=== PATIENT | female | born 1935 | race Caucasian/White ===

== ENCOUNTER 2016-08-15 22:46 | Emergency (ER) | payer MEDICAID ==
--- NOTE | 2016-08-15 22:56 | ED Physician Documentation ---
PD HPI DYSPNEA - Stated complaint Stated Complaint: SOA/COUGH - History obtained from History obtained from: Patient, Family - History of Present Illness Timing - onset: How many weeks ago (2) Timing - details: Gradual onset, Waxing and waning Pain level now: 0 Improved by: Rest Worsened by: Exertion Associated symptoms: Cough, Wheezing. No: Fever, Bilateral edema, Unilateral edema Similar symptoms before: Diagnosis (asthma, pneumonia) Recently seen: Not recently seen - Additional information Additional information: c/o 2 weeks of dyspnea on exertion, cough; symptoms worsening over past 3 days. 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: Tubal ligation - Present Medications Home Medications: Ambulatory Orders Medication Instructions Recorded Confirmed Multivitamin [Multi-Vitamin Daily] 1 each PO DAILY 09/24/12 11/01/15 Albuterol Sulfate [Ventolin Hfa] 2 puffs IH Q4HR PRN #1 hfa.aer.ad 11/01/15 Azithromycin [Zithromax] 250 mg PO DAILY #6 tablet 11/01/15 Formoterol Fumarate [Foradil] 0 mg INH .FREQ 11/01/15 11/01/15 Loratadine 0 tab PO .FREQ 11/01/15 11/01/15 predniSONE [Deltasone] 10 mg PO DAILY #26 tablet 11/01/15 Azithromycin [Zithromax] 250 mg PO DAILY 4 Days 08/16/16 Prednisone 40 mg PO DAILY 3 Days 08/16/16 - Allergies Allergies/Adverse Reactions: Allergies Allergy/AdvReac Type Severity Reaction Status Date / Time No Known Drug Allergies Allergy Verified 11/01/15 10:07 - Social History Does the pt smoke?: No Smoking Status: Never smoker PD ED PE NORMAL - Vitals Vital signs reviewed: Yes - General General: Alert and oriented X 3, No acute distress, Well developed/nourished - Neck Neck: Supple, no meningeal sign - Cardiac Cardiac: RRR, No murmur - Respiratory Respiratory: No respiratory distress - Abdomen Abdomen: Soft, Non tender - Extremities Extremities: No edema PD ED PE EXPANDED - Respiratory Respiratory: Wheezing (bilateral expiratory wheezing and decreased breath sounds ) Results - Vitals Vitals: Vital Signs - 24 hr 08/15/16 08/15/16 08/15/16 22:55 23:01 23:25 Temperature 36.5 C Heart Rate 84 78 73 Respiratory 20 22 20 Rate Blood Pressure 143/80 H 141/68 H O2 Saturation 93 98 08/15/16 08/16/16 08/16/16 23:32 00:04 00:38 Temperature Heart Rate 73 74 71 Respiratory 19 17 16 Rate Blood Pressure 140/63 H 130/61 117/61 O2 Saturation 97 97 96 08/16/16 08/16/16 08/16/16 01:03 01:50 01:56 Temperature 36.4 C L Heart Rate 67 70 71 Respiratory 18 18 19 Rate Blood Pressure 93/62 132/62 H O2 Saturation 96 96 Oxygen O2 Source Nasal cannula Oxygen Flow Rate 2 - EKG (time done) No standard instances Rate: Rate (enter#) (73) Rhythm: NSR [place]: Normal Intervals: Normal [place] QRS: Normal Ischemia: Non specific changes (V3-V6) - Labs Labs: Laboratory Tests 08/15/16 08/15/16 08/15/16 00:05 00:05 00:05 WBC 15.7 H RBC 4.67 Hgb 13.5 Hct 39.5 MCV 84.6 MCH 28.8 MCHC 34.1 RDW 12.4 Plt Count 240 MPV 8.6 Neut # 8.7 H Lymph # 4.7 H [place] # 1.3 H Eos # 0.9 H Baso # 0.1 Absolute Nucleated RBC 0.00 Nucleated RBCs 0.0 Sodium 133 L Potassium 4.8 Chloride 96 L Carbon Dioxide 28 Anion Gap 9.0 BUN 22 H Creatinine 1.0 Estimated GFR (MDRD) 53 L Glucose 112 H Calcium 9.4 Troponin I < 0.04 B-Natriuretic Peptide 08/15/16 00:05 WBC RBC Hgb Hct MCV MCH MCHC RDW Plt Count MPV Neut # Lymph # [place] # Eos # Baso # Absolute Nucleated RBC Nucleated RBCs Sodium Potassium Chloride Carbon Dioxide Anion Gap BUN Creatinine Estimated GFR (MDRD) Glucose Calcium Troponin I B-Natriuretic Peptide 39 - Rads (name of study) chest xray Radiology: Prelim report reviewed, See rad report PD MEDICAL DECISION MAKING - ED course Complexity details: reviewed old records, reviewed results, re-evaluated patient , considered differential, d/w patient, d/w family Departure - Departure Disposition: Home, Self Care Clinical Impression: Pneumonia, Asthma Condition: Good Instructions: ED Reactive Airway Disease, ED Pneumonia Adult Follow-Up: Saúl Post MD [Primary Care Provider] - (Thursday as scheduled) Prescriptions: Prednisone 40 mg PO DAILY 3 Days Azithromycin [Zithromax] 250 mg PO DAILY 4 Days Discharge Date/Time: 08/16/16 02:10
[2016-08-15] MEDS ORDERED: predniSONE 20 MG TABLET PO STA (23:17)
[2016-08-15] MEDS ORDERED: IPRATROPIUM/ALBUTEROL 3 ML NEB INH STA (23:18)
[2016-08-15] MEDS ORDERED: predniSONE 20 MG TABLET ONE (23:20)
[2016-08-15] MEDS ORDERED: IPRATROPIUM/ALBUTEROL 3 ML NEB INH ONE (23:23)
[2016-08-16 00:10] LABS: BASOPHILS # (AUTO) 0.1 10^3/uL (0.0-0.1); BASOPHILS % (AUTO) 0.7 %; EOSINOPHILS # (AUTO) 0.9 10^3/uL (0.0-0.7); EOSINOPHILS % (AUTO) 5.7 %; HCT - HEMATOCRIT 39.5 % (37.0-47.0); HGB - HEMOGLOBIN 13.5 g/dL (12.0-16.0); LYMPHOCYTES # (AUTO) 4.7 10^3/uL (1.5-3.5); LYMPHOCYTES % (AUTO) 29.9 %; MEAN CORPUSCULAR HEMOGLOBIN 28.8 pg (27.0-31.0); MEAN CORPUSCULAR HGB CONC 34.1 g/dL (32.0-36.0); MEAN CORPUSCULAR VOLUME 84.6 fL (81.0-99.0); MEAN PLATELET VOLUME 8.6 fL (7.9-10.8); MONOCYTES # (AUTO) 1.3 10^3/uL (0.0-1.0); MONOCYTES % (AUTO) 8.4 %; NEUTROPHILS # (AUTO) 8.7 10^3/uL (1.5-6.6); NEUTROPHILS % (AUTO) 55.3 %; RED BLOOD COUNT 4.67 10^6/uL (4.20-5.40); RED CELL DISTRIBUTION WIDTH 12.4 % (12.0-15.0); UNCORRECTED WHITE BLOOD COUNT 15.7 x10^3/uL; WHITE BLOOD COUNT 15.7 x10^3/uL (4.8-10.8)
[2016-08-16 00:21] LABS: CALCIUM 9.4 mg/dL (8.5-10.3); POTASSIUM 4.8 mmol/L (3.5-5.0)
--- NOTE | 2016-08-16 00:29 | XRAY Preliminary Report ---
Exam: XR Chest 2 View PA/LAT IMPRESSION: 1. Patchy right lung base as well as left upper lobe airspace disease demonstrates mild progression s trae the prior exam. This may represent infection. 2. Background of coarse multifocal interstitial abnormality as well as patchy right upper lobe nodula rity appears stable. These may be due to prior tuberculosis. [facility] SITE ID: [id number]
--- NOTE | 2016-08-16 00:32 | XRAY Report ---
EXAM: CHEST RADIOGRAPHY EXAM DATE: 08/16/2016 12:06 AM. CLINICAL HISTORY: Dyspnea, cough. COMPARISON: 11/09/2015. TECHNIQUE: 2 views. FINDINGS: Lungs/Pleura: Multiple coarse interstitial abnormalities within the lungs are relatively stable from the prior exam. Patchy nodular right upper lobe and right lower lobe airspace disease as well as mini mal nodular left upper lobe airspace disease. Slight progression within the left upper lobe and right lung base region. Mediastinum: Heart and mediastinal contours are unremarkable. Other: Right upper quadrant clips indicate prior cholecystectomy. IMPRESSION: 1. Patchy right lung base as well as left upper lobe airspace disease demonstrates mild progression s trae the prior exam. This may represent infection. 2. Background of coarse multifocal interstitial abnormality as well as patchy right upper lobe nodula rity appears stable. These may be due to prior tuberculosis. [facility] Referring Provider Line: [phone] SITE ID: [id number]
[2016-08-16] MEDS ORDERED: ALBUTEROL NEB 2.5 MG/3 ML INH ONE (01:46)
[2016-08-16] MEDS ORDERED: AZITHROMYCIN 250 MG TABLET PO STA (01:52)
[2016-08-16] MEDS ORDERED: ALBUTEROL NEB 2.5 MG/3 ML INH STA (01:52)
[2016-08-16] MEDS ORDERED: AZITHROMYCIN 250 MG TABLET PO ONE (01:54)
[2016-08-16 01:56] VITALS: BP 132/62
== END 2016-08-16 02:10 | disposition home or self-care (01) ==
LOC: ED 22:46
DX: J18.9 Pneumonia, unspecified organism (principal); J45.909 Unspecified asthma, uncomplicated
CPT/HCPCS: 36415; 71020; 80048; 83880; 84484; 85025; 93005; 94640; 99284; A9270; J7512; J7613; J7620

== ENCOUNTER 2017-04-02 20:31 | Outpatient (CLI) | payer MEDICAID | END 2017-04-02 20:32 | disposition critical access hospital (66) | LOC: EMS 20:31 | PROVIDERS: ATTEND Surgery | DX: R06.00 Dyspnea, unspecified (principal); R05 Cough; R50.9 Fever, unspecified | CPT/HCPCS: A0425; A0429 ==

== ENCOUNTER 2017-04-02 20:55 | Emergency (ER) | payer MEDICAID ==
[2017-04-02] MEDS ORDERED: SODIUM CHLORIDE 0.9% 1,000 ML IV ONE (21:01)
[2017-04-02] MEDS ORDERED: IPRATROPIUM/ALBUTEROL 3 ML NEB INH STA (21:01)
[2017-04-02 21:22] LABS: BASOPHILS % (AUTO) 0.2 %; EOSINOPHILS % (AUTO) 0.1 %; HGB - HEMOGLOBIN 11.3 g/dL (12.0-16.0); LYMPHOCYTES % (AUTO) 16.8 %; MEAN CORPUSCULAR HEMOGLOBIN 27.2 pg (27.0-31.0); MEAN CORPUSCULAR HGB CONC 32.6 g/dL (32.0-36.0); MEAN CORPUSCULAR VOLUME 83.5 fL (81.0-99.0); MONOCYTES % (AUTO) 7.2 %; NEUTROPHILS % (AUTO) 75.7 %; PLT - PLATELET COUNT 227 10^3/uL (130-450); RED BLOOD COUNT 4.15 10^6/uL (4.20-5.40); RED CELL DISTRIBUTION WIDTH 13.9 % (12.0-15.0); WHITE BLOOD COUNT 23.3 x10^3/uL (4.8-10.8)
--- NOTE | 2017-04-02 21:22 | ED Physician Documentation ---
History of Present Illness - Stated complaint Stated Complaint: FEVER/COUGH - Chief complaint Chief Complaint: Resp - History obtained from History obtained from: Patient, Family, EMS - History of Present Illness Timing: How many days ago (2) - Additonal information Additional information: Patient is a 81 year old female with a history of asthma who is presenting to the emergency department for cough and generalized weakness over the last few days. ems states that the family took the blood pressure at home and patient was hypotensive. With ems patient has been normotensive. family reports tactile fevers at home. Patient is non yoruba speaking but is here with her granddaughter. Review of Systems Constitutional: reports: Fever. denies: Myalgias Eyes: denies: Decreased vision Ears: denies: Ear pain, Drainage/discharge Nose: reports: Congestion Throat: denies: Sore throat Cardiac: denies: Chest pain / pressure, Palpitations Respiratory: reports: Dyspnea, Cough, Wheezing GI: denies: Abdominal Swelling, Nausea, Vomiting : denies: Dysuria, Frequency, Hematuria Skin: denies: Rash, Lesions Musculoskeletal: denies: Neck pain, Back pain, Extremity swelling Neurologic: reports: Generalized weakness. 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 /TWISTING OPERATOR: Tubal ligation - Present Medications Home Medications: Ambulatory Orders Medication Instructions Recorded Confirmed Multivitamin [Multi-Vitamin Daily] 1 each PO DAILY 09/24/12 11/01/15 Albuterol Sulfate [Ventolin Hfa] 2 puffs IH Q4HR PRN #1 hfa.aer.ad 11/01/15 Azithromycin [Zithromax] 250 mg PO DAILY #6 tablet 11/01/15 Formoterol Fumarate [Foradil] 0 mg INH .FREQ 11/01/15 11/01/15 Loratadine 0 tab PO .FREQ 11/01/15 11/01/15 predniSONE [Deltasone] 10 mg PO DAILY #26 tablet 11/01/15 Azithromycin [Zithromax] 250 mg PO DAILY 4 Days tablet 08/16/16 predniSONE [Prednisone] 40 mg PO DAILY 3 Days tablet 08/16/16 Amox/Clav 875/125 [Augmentin] 2 each PO Q12H #28 tablet 04/02/17 Azithromycin 250 mg PO DAILY #4 tablet 04/02/17 - Allergies Allergies/Adverse Reactions: Allergies Allergy/AdvReac Type Severity Reaction Status Date / Time No Known Drug Allergies Allergy Verified 04/02/17 21:00 - Social History Does the pt smoke?: No Smoking Status: Never smoker Does the pt drink ETOH?: No Does the pt have substance abuse?: No - Immunizations Immunizations are current?: No Immunizations: TDAP >10years/unknown - POLST Patient has POLST: No PD ED PE NORMAL - Vitals Vital signs reviewed: Yes - General General: Alert and oriented X 3 - HEENT HEENT: Atraumatic, PERRL - Neck Neck: Supple, no meningeal sign, No JVD - Cardiac Cardiac: RRR, No murmur - Abdomen Abdomen: Soft, Non tender, Non distended - Derm Derm: Normal color, Warm and dry, No rash - Extremities Extremities: No edema, No calf tenderness / cord - Neuro Neuro: Alert and oriented X 3, No motor deficit Eye Opening: Spontaneous Motor: Obeys Commands Verbal: Oriented GCS Score: 15 PD ED PE EXPANDED - HEENT HEENT: Dry mucous membranes - Respiratory Respiratory: Wheezing, Rhonchi, Right upper lobe, Right middle lobe, Right lower lobe, Left upper lobe, Left lower lobe Results - Vitals Vitals: Vital Signs - 24 hr 04/02/17 04/02/17 04/02/17 20:56 21:03 21:15 Temperature 36.3 C L 36.6 C Heart Rate 94 85 Respiratory 18 20 Rate Blood Pressure 117/69 O2 Saturation 93 04/02/17 04/02/17 21:35 22:36 Temperature 36.7 C Heart Rate 86 82 Respiratory 20 18 Rate Blood Pressure 113/63 123/72 O2 Saturation 97 97 Oxygen O2 Source Room air - EKG (time done) 2102 Rate: Rate (enter#) (87) Rhythm: NSR [place]: Normal Intervals: Normal [place] QRS: Normal Ischemia: Normal ST segments Compare to prior EKG: Old EKG unavailable - Labs Labs: Laboratory Tests 04/02/17 04/02/17 04/02/17 21:10 21:10 21:10 WBC 23.3 H RBC 4.15 L Hgb 11.3 L Hct 34.7 L MCV 83.5 MCH 27.2 MCHC 32.6 RDW 13.9 Plt Count 227 MPV 9.0 Neut # Not Reportable Lymph # Not Reportable [place] # Not Reportable Eos # Not Reportable Baso # Not Reportable Absolute Nucleated RBC Not Reportable Total Counted 100 Band Neuts % (Manual) 3 Abnorm Lymph % (Manual) 0 Nucleated RBC % Not Reportable Neutrophils # (Manual) 19.1 H Lymphocytes # (Manual) 4.0 H Monocytes # (Manual) 0.2 Eosinophils # (Manual) 0.0 Basophils # (Manual) 0.0 Differential Comment MANUAL DIFFERENTIAL Manual Slide Review Indicated WBC Morphology TOXIC GRANULATION Platelet Estimate NORMAL (130-450,000) Platelet Morphology NORMAL APPEARANCE RBC Morph Micro Appear NORMAL APPEARANCE Sodium 131 L Potassium 4.3 Chloride 97 L Carbon Dioxide 22 Anion Gap 12.0 BUN 30 H Creatinine 1.5 H Estimated GFR (MDRD) 33 L Glucose 178 H Calcium 8.7 Total Bilirubin 0.7 AST 19 ALT 15 Alkaline Phosphatase 66 Troponin I 0.04 B-Natriuretic Peptide Total Protein 7.3 Albumin 3.2 Globulin 4.1 Albumin/Globulin Ratio 0.8 L Lipase < 10 L Influenza A (Rapid) Influenza B (Rapid) Influenza Types A,B Ag 04/02/17 04/02/17 21:10 21:10 WBC RBC Hgb Hct MCV MCH MCHC RDW Plt Count MPV Neut # Lymph # [place] # Eos # Baso # Absolute Nucleated RBC Total Counted Band Neuts % (Manual) Abnorm Lymph % (Manual) Nucleated RBC % Neutrophils # (Manual) Lymphocytes # (Manual) Monocytes # (Manual) Eosinophils # (Manual) Basophils # (Manual) Differential Comment Manual Slide Review WBC Morphology Platelet Estimate Platelet Morphology RBC Morph Micro Appear Sodium Potassium Chloride Carbon Dioxide Anion Gap BUN Creatinine Estimated GFR (MDRD) Glucose Calcium Total Bilirubin AST ALT Alkaline Phosphatase Troponin I B-Natriuretic Peptide 71 Total Protein Albumin Globulin Albumin/Globulin Ratio Lipase Influenza A (Rapid) Negative Influenza B (Rapid) Negative Influenza Types A,B Ag - - Rads (name of study) chest x-ray Radiology: Final report received, See rad report (acute pnuemonia and chronic lung findings ) PD MEDICAL DECISION MAKING - ED course Complexity details: reviewed old records, reviewed results, re-evaluated patient , considered differential, d/w patient, d/w family ED course: Patient was seen and examined at bedside. ekg was performed which showed nsr. IV access was gained and labs were drawn. patient was treated with a fluid bolus. Chest x-ray was performed and did show acute on chronic lung pathology. Patient was started on rocephin and azithromycin. Patient had an elevated CURB65/psi score but family did not want to stay. Patient was awake and alert. patient's vital signs were within normal limits. The risks of leaving were explained to the family and they understood. Patient signed out ama but precriptions were written. Departure - Departure Disposition: Against Medical Advice Clinical Impression: Pneumonia Condition: Stable Instructions: ED Pneumonia Adult Follow-Up: primary,care provider [Other] - Within 3 Days Prescriptions: Amox/Clav 875/125 [Augmentin] 2 each PO Q12H #28 tablet Azithromycin 250 mg PO DAILY #4 tablet Comments: The patient's symptoms are being caused by pneumonia. She was started on antibiotics tonight and will need to be on one of the antibiotics for the next 4 days and the other antibiotic you will be on for 10 days. the patient is at a relatively high risk of getting worse, so if she doesn't improve you will have to come back to the emergency department. You should take the antibiotic with yogurt or probiotics to help reduce the gi side effects.
[2017-04-02 21:24] LABS: ABNORMAL LYMPHS % (MANUAL) 0 %
[2017-04-02 21:39] LABS: BAND NEUTROPHILS % (MANUAL) 3 %; LYMPHOCYTES % (MANUAL) 17 %; MONOCYTES # (MANUAL) 0.2 10^3/uL (0.0-1.0); NEUTROPHILS # (MANUAL) 19.1 10^3/uL (1.5-6.6); NEUTROPHILS % (MANUAL) 79 %; PLATELET ESTIMATE, MANUAL NORMAL (130-450,000) (NORMAL); PLATELET MORPHOLOGY NORMAL APPEARANCE (NORMAL); RBC MORPHOLOGY (MULTIPLE) NORMAL APPEARANCE (NORMAL)
[2017-04-02 21:40] LABS: DIFFERENTIAL COMMENT MANUAL DIFFERENTIAL
--- NOTE | 2017-04-02 21:47 | XRAY Preliminary Report ---
Exam: XR CHEST 2 VIEW X-RAY IMPRESSION: 1. Progression of extensive right lung infiltrate, consistent with either acute on chronic lung disea se or progression of this patient's presumed chronic inflammatory/granulomatous process. 2. New small left lung base infiltrate. 3. Stable mediastinal adenopathy. 4. Increasing small right pleural effusion. [facility] SITE ID: [id number]
[2017-04-02 21:52] LABS: ALBUMIN 3.2 g/dL (3.2-5.5); ALBUMIN/GLOBULIN RATIO 0.8 (1.0-2.2); ALKALINE PHOSPHATASE 66 IU/L (42-121); ALT ALANINE AMINOTRANSFERASE 15 IU/L (10-60); AST ASPARTATE AMINOTRANSFERASE 19 IU/L (10-42); BILIRUBIN,TOTAL 0.7 mg/dL (0.2-1.0); BUN - BLOOD UREA NITROGEN 30 mg/dL (6-20); CALCIUM 8.7 mg/dL (8.5-10.3); CARBON DIOXIDE - CO2 22 mmol/L (21-32); CHLORIDE 97 mmol/L (101-111); CREATININE 1.5 mg/dL (0.4-1.0); GFR - MDRD 33 (>89); GLUCOSE 178 mg/dL (70-100); SODIUM 131 mmol/L (135-145); TOTAL PROTEIN 7.3 g/dL (6.7-8.2)
[2017-04-02 21:55] LABS: LIPASE < 10 U/L (22-51)
--- NOTE | 2017-04-02 22:00 | XRAY Report ---
EXAM: CHEST RADIOGRAPHY EXAM DATE: 04/02/2017 09:24 PM. CLINICAL HISTORY: Fever, cough. COMPARISON: 08/15/2016. 11/01/2015. TECHNIQUE: 2 views. FINDINGS: Lungs/Pleura: Overexpanded. Increasing reticulonodular and interstitial infiltrates throughout the ri ght lung, with baseline preponderance of nodular densities right upper lobe long-standing. New small interstitial infiltrate left base. Left lung otherwise clear. Increasing slight blunting right lateral and posterior costophrenic angles. No pneumothorax. Mediastinum: Heart is normal caliber. Stable widened left paratracheal stripe. No midline shift. Other: Scoliosis. IMPRESSION: 1. Progression of extensive right lung infiltrates, consistent with either acute on chronic lung dise ase or progression of this patient's presumed chronic inflammatory/granulomatous process. 2. New small left lung base infiltrate. 3. Stable mediastinal adenopathy. 4. Increasing small right pleural effusion. [facility] Referring Provider Line: [phone] SITE ID: [id number]
[2017-04-02] MEDS ORDERED: cefTRIAXone 1 GM in SODIUM CHLORIDE 0.9% MINIBAG 100 ML IV STA (22:04)
[2017-04-02] MEDS ORDERED: AZITHROMYCIN INJ 500 MG in SODIUM CHLORIDE 0.9% 250 ML IV STA (22:06)
[2017-04-02] MEDS ORDERED: AZITHROMYCIN 250 MG TABLET PO STA (22:34)
[2017-04-02 22:37] VITALS: BP 123/72
== END 2017-04-02 23:01 | disposition left against medical advice (07) ==
LOC: ED 20:55
DX: J18.9 Pneumonia, unspecified organism (principal); J44.0 Chronic obstructive pulmonary disease with (acute) lower respiratory infection
CPT/HCPCS: 36415; 71046; 80053; 83690; 83880; 84484; 85025; 87040; 87275; 87276; 93005; 94640; 96361; 96365; 99284; A9270; J7620

== ENCOUNTER 2018-12-24 18:18 | Emergency (ER) | payer MEDICAID ==
--- NOTE | 2018-12-24 19:13 | ED Physician Documentation ---
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 She has had 6 days of cough, nasal congestion, and some shortness of breath. She has a history of asthma and chronic lung disease for years of unclear etiology. She denies fever currently, but found that she had a subjective fever earlier in the week. She has been coughing white sputum. No leg swelling, no history of blood clots. No chest pain. 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: None : None HEENT: None Psych: Anxiety Musculoskeletal: None Derm: None - Past Surgical History Past Surgical History: Yes General: 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 /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: Tubal ligation - Present Medications Home Medications: Ambulatory Orders Medication Instructions Recorded Confirmed Multivitamin [Multi-Vitamin Daily] 1 each PO DAILY 09/24/12 11/01/15 Albuterol Sulfate [Ventolin Hfa] 2 puffs IH Q4HR PRN #1 hfa.aer.ad 11/01/15 Azithromycin [Zithromax] 250 mg PO DAILY #6 tablet 11/01/15 Formoterol Fumarate [Foradil] 0 mg INH .FREQ 11/01/15 11/01/15 Loratadine 0 tab PO .FREQ 11/01/15 11/01/15 predniSONE [Deltasone] 10 mg PO DAILY #26 tablet 11/01/15 Azithromycin [Zithromax] 250 mg PO DAILY 4 Days tablet 08/16/16 predniSONE [Prednisone] 40 mg PO DAILY 3 Days tablet 08/16/16 Amox/Clav 875/125 [Augmentin] 2 each PO Q12H #28 tablet 04/02/17 Azithromycin 250 mg PO DAILY #4 tablet 04/02/17 Azithromycin [Zithromax] 0 mg PO DAILY #6 tablet 12/24/18 predniSONE [Prednisone] 40 mg PO DAILY #10 tablet 12/24/18 - Allergies Allergies/Adverse Reactions: Allergies Allergy/AdvReac Type Severity Reaction Status Date / Time No Known Drug Allergies Allergy Verified 12/24/18 18:33 - Social History Does the pt smoke?: No Smoking Status: Never smoker Does the pt drink ETOH?: No Does the pt have substance abuse?: No - Immunizations Immunizations are current?: Yes - POLST Patient has POLST: No PD ED PE NORMAL - Vitals Vital signs reviewed: Yes - General General: Alert and oriented X 3, No acute distress - HEENT HEENT: Atraumatic, PERRL - Neck Neck: Supple, no meningeal sign - Cardiac Cardiac: RRR - Respiratory Respiratory: Other (Fine crackles, no wheeze) - Abdomen Abdomen: Soft, Non tender, Non distended - Derm Derm: Warm and dry - Extremities Extremities: No deformity, No edema - Neuro Neuro: Alert and oriented X 3 - Psych Psych: Normal mood, Normal affect Results - Vitals Vitals: Vital Signs - 24 hr 12/24/18 12/24/18 12/24/18 18:30 19:47 21:00 Temperature 36.9 C 36.5 C Heart Rate 85 71 77 Respiratory 21 21 24 Rate Blood Pressure 157/78 H 143/70 H 148/80 H O2 Saturation 92 96 96 12/24/18 12/24/18 21:05 22:06 Temperature Heart Rate 73 75 Respiratory 18 17 Rate Blood Pressure 144/55 H O2 Saturation 95 Oxygen O2 Source Room air - EKG (time done) 18:34 Other comments: Other comments (Rate 78, rhythm sinus, There are slightly peaked T waves in V2 through V4, unchanged in appearance to past EKG. There is no significant ST segment elevation or depression. No abnormal T wave inversions) - Labs Labs: Laboratory Tests 12/24/18 12/24/18 19:20 19:20 WBC 10.6 RBC 4.43 Hgb 12.8 Hct 39.2 MCV 88.5 MCH 28.9 MCHC 32.7 RDW 12.9 Plt Count 240 MPV 11.7 H Neut # (Auto) 4.1 Lymph # (Auto) 4.7 H [place] # (Auto) 1.2 H Eos # (Auto) 0.6 Baso # (Auto) 0.1 Absolute Nucleated RBC 0.00 Nucleated RBC % 0.0 Sodium 137 Potassium 4.7 Chloride 102 Carbon Dioxide 26 Anion Gap 9.0 BUN 29 H Creatinine 1.0 Estimated GFR (MDRD) 53 L Glucose 94 Calcium 9.6 Total Bilirubin 0.5 AST 25 ALT 24 Alkaline Phosphatase 80 Total Protein 7.8 Albumin 3.8 Globulin 4.0 Albumin/Globulin Ratio 1.0 Lipase 35 - Rads (name of study) CXR Radiology: Other (Chronic infiltrates without acute cardiopulmonary abnormality) PD MEDICAL DECISION MAKING - ED course Complexity details: considered differential (COPD, asthma, chronic lung disease, URI, pneumonia) ED course: Pt is well-appearing on exam, she does become hypoxic to 88% after ambulation. CXR shows chronic infiltrate, no acute abnormality. EKG is unchanged from prior and she has no chest pain, her symptoms of congestion, productive cough are much more consistent with COPD/asthma exacerbation and URI than ACS or PE. No calf swelling, edema, or history of blood clots, and no chest pain to suggest PE. I spoke with Dr. Caicedo, reviewed the patient's case as well as her hypoxia after ambulation, he declined the admission and states that she appears appropriate for a trial of ambulatory therapy. Pt was given a duoneb and steroids, on re-evaluation she is saturating in the mid 90s with normal work of breathing, feels improved. I discussed she appears to have an exacerbation of her chronic lung disease, likely from a viral URI. I prescribed steroid burst and axithromycin, and recommended home nebulizer treatments, which patient has not been doing. I also explained she needs to follow up with her PCP and a planning assistant, as I do not see evidence that she has ever had her chronic lung disease fully worked up. Patient agrees and was discharged in the care of family in good condition. Departure - Departure Disposition: 01 Home, Self Care Clinical Impression: Cough, Chronic lung disease Condition: Good Follow-Up: IVANA MCGRAW [Primary Care Provider] - Within 1 week Prescriptions: Azithromycin [Zithromax] 0 mg PO DAILY #6 tablet predniSONE [Prednisone] 40 mg PO DAILY #10 tablet Comments: You were seen today for cough, you appear to have a exacerbation of your lung disease, please take the Prednisone and azithromycin as directed. Follow-up with your primary care provider, you have some chronic inflammation of your lungs, and if you have not done so already you should see a planning assistant/lung specialist. If you develop worsening such as chest pain or shortness of breath return to the emergency department. Use your nebulizer at home. Discharge Date/Time: 12/24/18 22:06
[2018-12-24 19:29] LABS: BASOPHILS # (AUTO) 0.1 10^3/uL (0.0-0.1); BASOPHILS % (AUTO) 0.6 %; EOSINOPHILS # (AUTO) 0.6 10^3/uL (0.0-0.7); EOSINOPHILS % (AUTO) 5.3 %; HGB - HEMOGLOBIN 12.8 g/dL (12.0-16.0); LYMPHOCYTES # (AUTO) 4.7 10^3/uL (1.5-3.5); MEAN CORPUSCULAR HEMOGLOBIN 28.9 pg (27.0-31.0); MEAN CORPUSCULAR HGB CONC 32.7 g/dL (32.0-36.0); MEAN CORPUSCULAR VOLUME 88.5 fL (81.0-99.0); MEAN PLATELET VOLUME 11.7 fL (7.9-10.8); MONOCYTES # (AUTO) 1.2 10^3/uL (0.0-1.0); MONOCYTES % (AUTO) 10.8 %; NEUTROPHILS # (AUTO) 4.1 10^3/uL (1.5-6.6); NEUTROPHILS % (AUTO) 38.9 %; PLT - PLATELET COUNT 240 10^3/uL (130-450); RED BLOOD COUNT 4.43 10^6/uL (4.20-5.40); RED CELL DISTRIBUTION WIDTH 12.9 % (12.0-15.0); WHITE BLOOD COUNT 10.6 x10^3/uL (4.8-10.8)
[2018-12-24 19:41] LABS: ALBUMIN 3.8 g/dL (3.2-5.5); BILIRUBIN,TOTAL 0.5 mg/dL (0.2-1.0); CALCIUM 9.6 mg/dL (8.5-10.3); TOTAL PROTEIN 7.8 g/dL (6.7-8.2)
--- NOTE | 2018-12-24 20:15 | XRAY Report ---
Reason: cough Procedure Date: 12/24/2018 Accession Number: [id number] / [id number] Procedure: XR - Chest 2 View X-Ray CPT Code: 44796 Final Report FULL RESULT: EXAM: CHEST RADIOGRAPHY EXAM DATE: 12/24/2018 07:42 PM. CLINICAL HISTORY: Cough with increasing shortness of breath for a week. COMPARISON: CHEST 2 VIEW 04/02/2017 9:05 PM. TECHNIQUE: 2 views. FINDINGS: Lungs/Pleura: Hyperinflated lungs with chronic infiltrates in the right upper lobe and anterolateral right base. No new infiltrates. Mediastinum: Heart and mediastinal contours are unremarkable. Other: Mild S-shaped scoliosis. IMPRESSION: Chronic infiltrates on the right, with no acute pulmonary abnormalities identified. [facility]
[2018-12-24] MEDS ORDERED: predniSONE 20 MG TABLET PO STA (20:38)
[2018-12-24] MEDS ORDERED: AZITHROMYCIN 250 MG TABLET PO STA (20:39)
[2018-12-24] MEDS ORDERED: IPRATROPIUM/ALBUTEROL 3 ML NEB INH STA (20:50)
[2018-12-24 22:06] VITALS: BP 144/55
== END 2018-12-24 22:06 | disposition home or self-care (01) ==
LOC: ED 18:18
DX: R05 Cough (principal); J44.9 Chronic obstructive pulmonary disease, unspecified
CPT/HCPCS: 36415; 71046; 80053; 83690; 85025; 93005; 94640; 99283; 99284; A9270; J7512